=== PATIENT | female | born 1990 | race American Indian/Alaskan Native ===

== ENCOUNTER 2016-06-18 20:02 | Emergency (ER) | payer SELFPAY ==
[2016-06-18 20:18] VITALS: BP 123/87
[2016-06-18 21:42] LABS: Bilirubin,Urine NEG (Negative); Blood,Urine NEG (Negative); Ketones,Urine NEG (Negative); Leukocyte Esterase,Urine NEG (Negative); Nitrite,Urine NEG (Negative); Protein,Urine <15 mg/dL mg/dL (Negative); Urobilinogen,Urine < 2.0 mg/dL (<2.0); WBC,Urine < 1.0 /HPF (0.0-6.0)
== END 2016-06-19 04:32 | disposition left against medical advice (07) ==
LOC: ED 20:02
DX: N89.8 Other specified noninflammatory disorders of vagina (principal); R10.2 Pelvic and perineal pain; Z53.21 Procedure and treatment not carried out due to patient leaving prior to being seen by health care provider
CPT/HCPCS: 81001; 81025

== ENCOUNTER 2016-09-01 14:59 | Emergency (ER) | payer OTHER ==
[2016-09-01 15:25] VITALS: BP 111/68
--- NOTE | 2016-09-01 15:32 | Emergency Department Report ---
Chief Complaint: Abdominal Pain Stated Complaint: 10 WKS PELVIC PAIN Time Seen by Provider: 09/01/16 15:29 - HPI History of Present Illness: pt is 10 weeks and complains of lower abd pain - ROS Review of Systems: + n/v + vaginal dc - Exam Vital Signs: Vital Signs 09/01/16 15:18 Temperature 98.4 F Pulse Rate 76 Respiratory 20 Rate Blood Pressure 111/68 O2 Sat by Pulse 100 Oximetry Physical Exam: abd soft and non tender at this time, pt does c/o pelvic pain MSE screening note: Focused history and physical exam performed. Due to findings the following was ordered: labs, us ED Disposition for MSE Condition: Stable Instructions: Abdominal Pain (ED)
[2016-09-01 15:53] LABS: Basophils % (Auto) 0.8 % (0.0-1.8); Eosinophils % (Auto) 4.2 % (0.0-4.3); Hematocrit 31.8 % (30.3-42.9); Hemoglobin 10.2 gm/dl (10.1-14.3); Mean Corpuscular HGB Conc 32 % (30-34); Mean Corpuscular Volume 73 fl (79-97); Platelet Count 175 K/mm3 (140-440); Red Blood Count 4.37 M/mm3 (3.65-5.03); Red Cell Distribution Width 17.8 % (13.2-15.2)
[2016-09-01 16:04] LABS: Mean Corpuscular Hemoglobin 23 pg (28-32)
[2016-09-01 16:12] LABS: Alanine Aminotransferase 33 units/L (7-56); Albumin 3.8 g/dL (3.9-5); Albumin/Globulin Ratio 1.1 %; Alkaline Phosphatase 65 units/L (35-129); Anion Gap 15 mmol/L; Blood Urea Nitrogen 6 mg/dL (7-17); Calcium 8.7 mg/dL (8.4-10.2); Carbon Dioxide 24 mmol/L (22-30); Glucose 86 mg/dL (65-100); Potassium 3.9 mmol/L (3.6-5.0); Sodium 137 mmol/L (137-145); Total Protein 7.2 g/dL (6.3-8.2)
[2016-09-01 16:49] LABS: Bacteria,Urine 4+ /HPF (Negative); Bilirubin,Urine NEG (Negative); Blood,Urine NEG (Negative); Ketones,Urine NEG (Negative); Leukocyte Esterase,Urine MOD (Negative); Mucus,Urine FEW /HPF; Nitrite,Urine NEG (Negative); Protein,Urine <15 mg/dL mg/dL (Negative); Urobilinogen,Urine < 2.0 mg/dL (<2.0)
--- NOTE | 2016-09-01 19:21 | Ultrasound Report ---
FINAL REPORT PROCEDURE: US OB TRANSVAGINAL and transabdominal TECHNIQUE: Real-time transabdominal and transvaginal sonography of the uterus, placenta, amniotic fluid, adnexa, and fetus was performed with image documentation. Measurements were obtained to determine age/size. M-mode Doppler was used to document heartbeat. CPT 32956 and 04143 HISTORY: pain, COMPARISON: No prior studies are available for comparison. FINDINGS: ADDITIONAL GESTATION: None. CRL: 25 mm, which corresponds to a gestational age of: 9 weeks, 2 days. Yolk Sac: Normal. Embryonic Cardiac Activity: 176 beats per minute Gestational Sac: There is a hypoechoic subchorionic hemorrhage noted, which measures approximately 9 millimeters in thickness Amniotic fluid: Normal. Cervix: Normal. Right Ovary: 2.1 x 1.5 x 1.7 centimeters Left Ovary: 2.5 x 1.7 x 2.6 centimeters Estimated delivery date: 04/04/2017 No free fluid is seen IMPRESSION: 1. Single live intrauterine gestation at approximately 9 weeks, 2 days. 2. EDC by US 04/04/2017 3. Complete anatomic survey at 18-20 weeks suggested. 4. Small to moderate sized subchorionic hemorrhage noted.
--- NOTE | 2016-09-01 19:23 | Ultrasound Report ---
FINAL REPORT PROCEDURE: US OB TRANSVAGINAL and transabdominal TECHNIQUE: Real-time transabdominal and transvaginal sonography of the uterus, placenta, amniotic fluid, adnexa, and fetus was performed with image documentation. Measurements were obtained to determine age/size. M-mode Doppler was used to document heartbeat. CPT 60817 and 32986 HISTORY: pain, COMPARISON: No prior studies are available for comparison. FINDINGS: ADDITIONAL GESTATION: None. CRL: 25 mm, which corresponds to a gestational age of: 9 weeks, 2 days. Yolk Sac: Normal. Embryonic Cardiac Activity: 176 beats per minute Gestational Sac: There is a hypoechoic subchorionic hemorrhage noted, which measures approximately 9 millimeters in thickness Amniotic fluid: Normal. Cervix: Normal. Right Ovary: 2.1 x 1.5 x 1.7 centimeters Left Ovary: 2.5 x 1.7 x 2.6 centimeters Estimated delivery date: 04/04/2017 No free fluid is seen IMPRESSION: 1. Single live intrauterine gestation at approximately 9 weeks, 2 days. 2. EDC by US 04/04/2017 3. Complete anatomic survey at 18-20 weeks suggested. 4. Small to moderate sized subchorionic hemorrhage noted. PROCEDURE: TECHNIQUE: HISTORY: COMPARISON: FINDINGS: IMPRESSION:
--- NOTE | 2016-09-05 11:10 | ED Elopement Review ---
ED Pt Elopement review - Results review Lab results: Laboratory Tests 09/01/16 09/01/16 09/01/16 15:39 15:39 15:39 WBC 5.0 RBC 4.37 Hgb 10.2 Hct 31.8 MCV 73 L MCH 23 L MCHC 32 RDW 17.8 H Plt Count 175 Lymph % (Auto) 23.8 Story % (Auto) 6.2 Eos % (Auto) 4.2 Baso % (Auto) 0.8 Lymph # 1.2 Story # 0.3 Eos # 0.2 Baso # 0.0 Seg Neutrophils % 65.0 Seg Neutrophils # 3.3 Sodium 137 Potassium 3.9 Chloride 102.0 Carbon Dioxide 24 Anion Gap 15 BUN 6 L Creatinine 0.5 L Estimated GFR > 60 BUN/Creatinine Ratio 12.00 Glucose 86 Calcium 8.7 Total Bilirubin 0.20 AST 30 ALT 33 Alkaline Phosphatase 65 Total Protein 7.2 Albumin 3.8 L Albumin/Globulin Ratio 1.1 HCG, Quant [id number] H Urine Color Urine Turbidity Urine pH Ur Specific Luther Urine Protein Urine Glucose (UA) Urine Ketones Urine Blood Urine Nitrite Urine Bilirubin Urine Urobilinogen Ur Leukocyte Esterase Urine WBC (Auto) Urine RBC (Auto) U Epithel Cells (Auto) Urine Bacteria (Auto) Urine Mucus 09/01/16 16:12 WBC RBC Hgb Hct MCV MCH MCHC RDW Plt Count Lymph % (Auto) Story % (Auto) Eos % (Auto) Baso % (Auto) Lymph # Story # Eos # Baso # Seg Neutrophils % Seg Neutrophils # Sodium Potassium Chloride Carbon Dioxide Anion Gap BUN Creatinine Estimated GFR BUN/Creatinine Ratio Glucose Calcium Total Bilirubin AST ALT Alkaline Phosphatase Total Protein Albumin Albumin/Globulin Ratio HCG, Quant Urine Color Yellow Urine Turbidity Slightly-cloudy Urine pH 7.0 Ur Specific Luther 1.017 Urine Protein <15 mg/dl Urine Glucose (UA) Neg Urine Ketones Neg Urine Blood Neg Urine Nitrite Neg Urine Bilirubin Neg Urine Urobilinogen < 2.0 Ur Leukocyte Esterase Mod Urine WBC (Auto) 32.0 H Urine RBC (Auto) 3.0 U Epithel Cells (Auto) 9.0 Urine Bacteria (Auto) 4+ Urine Mucus Few - Call Back decision Pt Call Back Decision: No action required
== END 2016-09-01 21:00 | disposition left against medical advice (07) ==
LOC: ED 14:59
DX: O26.891 Other specified pregnancy related conditions, first trimester (principal); R10.2 Pelvic and perineal pain; Z3A.10 10 weeks gestation of pregnancy; Z53.21 Procedure and treatment not carried out due to patient leaving prior to being seen by health care provider
CPT/HCPCS: 36415; 76801; 76817; 80053; 81001; 84702; 85025

== ENCOUNTER 2017-01-29 11:37 | Outpatient (CLI) | payer OTHER, MEDICAID ==
[2017-01-29 13:00] VITALS: BP 106/54
[2017-01-29 13:29] LABS: Mucus,Urine FEW /HPF
[2017-01-29 13:49] LABS: Bacteria,Urine 2+ /HPF (Negative); Bilirubin,Urine NEG (Negative); Blood,Urine NEG (Negative); Ketones,Urine NEG (Negative); Leukocyte Esterase,Urine LG (Negative); Nitrite,Urine NEG (Negative); Protein,Urine <15 mg/dL mg/dL (Negative); Urobilinogen,Urine < 2.0 mg/dL (<2.0)
[2017-01-29] MEDS ORDERED: LACTATED RINGERS 500 ML IV ONE (14:00)
[2017-01-29] MEDS ORDERED: XYLOCAINE 1% MPF 5 mL INFILTRATI ONE (14:12)
[2017-01-29] MEDS ORDERED: ROCEPHIN IM ONE (14:12)
== END 2017-01-29 15:42 | disposition home or self-care (01) ==
LOC: TRG 11:37
PROVIDERS: ATTEND Obstetrics & Gynecology
DX: Z34.93 Encounter for supervision of normal pregnancy, unspecified, third trimester (principal); Z3A.31 31 weeks gestation of pregnancy
CPT/HCPCS: 59025; 81001; J0696

== ENCOUNTER 2020-05-17 05:57 | Day surgery (SDC) | payer MEDICAID, OTHER ==
--- NOTE | 2020-05-16 16:33 | Short Stay Summary ---
Short Stay Documentation Date of service: 05/16/20 Narrative H&P: 29y/o with undesired fertility. The patient is aware of other contraceptive options and has elected to undergo definitive surgical management. Patient has been reassessed/reevaluated/re-examined. H&P has been reviewed. No interval changes. - History Principal diagnosis: Unwanted fertility Past Medical History: other (asthma) Past Surgical History: appendectomy Social history: single - Allergies and Medications Current Medications: Allergies No Known Allergies Allergy (Unverified 05/15/20 14:33) Home Medications Medication Instructions Recorded Confirmed Last Taken Type Clindamycin [Clindamycin CAP] 300 mg PO BID 05/15/20 05/15/20 Unknown History Active Medications Acetaminophen (Acetaminophen 500 Mg Tab) 1,000 mg PO PREOP LETHA Stop: 05/17/20 23:01 Celecoxib (Celecoxib 200 Mg Cap) 200 mg PO PREOP NR Stop: 05/17/20 23:01 Gabapentin (Gabapentin 300 Mg Cap) 300 mg PO PREOP NR Stop: 05/17/20 23:01 Lactated Ringer's (Lactated Ringers) 1,000 mls @ 100 mls/hr IV DIRECT LETHA Stop: 05/17/20 23:59 Midazolam HCl (Midazolam 2 Mg/2 Ml Inj) 2 mg IV PREOP NR Stop: 05/17/20 23:01 - Physical exam General appearance: no acute distress Integumentary: no rash HEENT: Atraumatic Lungs: Clear to auscultation Breasts: deferred Heart: Regular rate Gastrointestinal: normal Female Genitourinary: deferred Rectal Exam: deferred - Brief post op/procedure progress note Date of procedure: 05/17/20 Pre-op diagnosis: Unwanted fertility Post-op diagnosis: same Procedure: Laparoscopy Bilateral salpingectomy Anesthesia: PRAVEEN Surgeon: KENNA BROWNLEE Estimated blood loss: minimal Pathology: list (Bilateral fallopian tubes) Specimen disposition: to lab Condition: stable - Hospital course Hospital course: The patient was admitted the day of surgery and underwent a laparoscopy and bilateral salpingectomy. Please see operative note for details of surgery. Her postoperative course was uneventful. - Disposition Condition at discharge: Good Disposition: DC- TO HOME OR SELFCARE - Discharge Diagnoses (1) Unwanted fertility Status: Acute Short Stay Discharge Plan Activity: no restrictions (Pelvic rest for 1 week) Diet: regular Additional Instructions: Follow-up is not required Follow-up as needed Prescriptions: Ibuprofen [Motrin] 800 mg PO Q8HR PRN #30 tablet PRN Reason: Pain , Severe (7-10) HYDROcodone/APAP 5-325 [[place] 5/325] 1 each PO Q6HR PRN #15 tablet PRN Reason: Pain
[2020-05-17] MEDS ORDERED: ACETAMINOPHEN 500 MG TAB PO SCH (06:00)
[2020-05-17] MEDS ORDERED: LACTATED RINGERS 1,000 ML IV SCH (06:00)
[2020-05-17] MEDS ORDERED: GABAPENTIN 300 MG CAP PO NR (06:00)
[2020-05-17] MEDS ORDERED: CELECOXIB 200 MG CAP PO NR (06:00)
[2020-05-17] MEDS ORDERED: MIDAZOLAM 2 MG/2 ML INJ IV NR (06:00)
[2020-05-17] MEDS ORDERED: LIDOCAINE MPF (2%) 20 MG/1 ML VIAL 5 ML ONE (07:22)
[2020-05-17] MEDS ORDERED: ONDANSETRON 4 MG/2 ML INJ ONE (07:22)
[2020-05-17] MEDS ORDERED: ROCURONIUM 50 MG/5 ML INJ IV ONE (07:22)
[2020-05-17] MEDS ORDERED: propofoL 200 MG/20 ML VIAL IV ONE (07:23)
[2020-05-17] MEDS ORDERED: HYDROmorphone 1 MG/1 ML INJ ONE (07:23)
[2020-05-17] MEDS ORDERED: ONDANSETRON 4 MG/2 ML INJ IV PRN (07:25)
[2020-05-17] MEDS ORDERED: HYDROmorphone 1 MG/1 ML INJ IV PRN (07:25)
[2020-05-17] MEDS ORDERED: oxyCODONE /ACETAMINOPHEN 5-325MG TAB PO PRN (07:25)
--- NOTE | 2020-05-17 07:25 | Anesthesia Day of Surgery ---
Anesthesia Day of Surgery - Day of Surgery Patient Examined: Yes Patient H&P Reviewed: Yes Patient is NPO: Yes
--- NOTE | 2020-05-17 07:25 | Anesthesia Consultation ---
Anesthesia Consult and Med Hx Date of service: 05/17/20 - Airway Anesthetic Teeth Evaluation: Good ROM Head & Neck: Adequate Mental/Hyoid Distance: Adequate Mallampati Class: Class I Intubation Access Assessment: Good - Pre-Operative Health Status ASA Pre-Surgery Classification: ASA2 Proposed Anesthetic Plan: General - Pulmonary Hx Smoking: No Hx Asthma: Yes (intermittent sympotms at night) - Cardiovascular System Hx Hypertension: No - Central Nervous System CVA: No - Endocrine Hx Renal Disease: No Hx Liver Disease: No Hx Insulin Dependent Diabetes: No Hx Non-Insulin Dependent Diabetes: No Hx Thyroid Disease: No - Other Systems Hx Obesity: Yes (BMI 35)
[2020-05-17] MEDS ORDERED: dexAMETHasone 20 MG/5 ML VIAL ONE (07:59)
[2020-05-17] MEDS ORDERED: NEOSTIGMINE 10MG/10 ML INJ MDV ONE (08:00)
[2020-05-17] MEDS ORDERED: GLYCOPYRROLATE 0.4 MG/2 ML INJ ONE (08:00)
[2020-05-17] MEDS ORDERED: BUPIVACAINE/PF (0.5%) 5 MG/1 ML 30 ML VIAL INFILTRATI ONE (08:15)
--- NOTE | 2020-05-17 08:22 | Operative Report ---
Operative Report Operative Report: Date of surgery: May 17, 2020 Preoperative diagnosis: Unwanted fertility Postoperative diagnosis: Same as above Procedure: Laparoscopy; Bilateral salpingectomy Surgeon: Swapna Medina M.D. Anesthesia: General endotracheal anesthesia Estimated blood loss: Minimal Pathology: Bilateral fallopian tubes Findings: Normal uterus tubes and ovaries Indication: 29-year-old -0-0-2 with undesired fertility. Procedure: The patient was taken to the operating room and given general endotracheal anesthesia without complication. The patient is prepped and draped in a normal sterile fashion. A bivalve speculum was placed in the patient's vagina and a single-tooth tenaculum was placed on the anterior lip of the cervix .A uterine acorn manipulator was placed, and the bivalve speculum was then removed. Attention was then turned to the patient's abdomen where a 5 mm infraumbilical skin incision was then made. A Veress needle was placed and peritoneal entry was verified water-filled syringe. Insufflation of the peritoneal cavity was performed with CO2 gas. A 5 mm trocar was placed and the laparoscope was then inserted. The patient was then placed in Trendelenburg. A 7 mm suprapubic skin incision was then made. Under direct visualization a 7 mm trocar was then placed. An additional 5 mm left lateral trocar was also placed. General survey of the patient's abdomen revealed normal uterus tubes and ovaries. The fallopian tube was then followed out to the fimbriated end. The LigaSure device was used in order to coagulate and transect the mesosalpinx. The fallopian tube was excised from the adnexa. The fallopian tube was removed through the 7 mm trocar. This was performed on the contralateral side as well. The trocars were then removed. The pneumoperitoneum was then released. The 5 mm trocar laparoscope was then removed. The skin incisions were then closed with 4-0 Monocryl. The incisions were injected with quarter percent Marcaine. Dressings were applied to the incision. The vaginal instruments were then removed atraumatically. Then successfully extubated and taken to the recovery room. All sponge laps and needle counts were correct x2.
--- NOTE | 2020-05-17 09:21 | Post Anesthesia Evaluation ---
- Post Anesthesia Evaluation Patient Participated: Yes Airway Patent: Yes Stable Respiratory Function: Yes Nausea/Vomiting: No Temp > 96.8F: Yes Pain Manageable: Yes Adequeate Hydration: Yes Anesthesia Complications: No
[2020-05-17 09:37] VITALS: BP 101/67
== END 2020-05-17 05:58 | disposition home or self-care (01) ==
LOC: OR 05:57
PROVIDERS: ATTEND Obstetrics & Gynecology
DX: Z30.2 Encounter for sterilization (principal); J45.909 Unspecified asthma, uncomplicated; E66.9 Obesity, unspecified; Z98.890 Other specified postprocedural states; Z90.49 Acquired absence of other specified parts of digestive tract; Z79.899 Other long term (current) drug therapy; Z68.35 Body mass index [BMI] 35.0-35.9, adult
CPT/HCPCS: 58670; 81025; 88302; J1100; J1170; J2250; J2405; J2704; J2710; J7120